=== PATIENT | male | born 1975 | race Caucasian/White ===

== ENCOUNTER 2016-09-21 08:32 | Emergency (ER) | payer OTHER ==
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
--- NOTE | 2016-09-21 09:55 | CR ---
Chest: 2 views of the chest were obtained. Comparison: No previous chest x-ray. Heart size and mediastinum are normal. Small nodule identified overlying the right upper rib. Lungs otherwise are clear. Slight degenerative spurring is seen within the spine. Impression: 1. Small right upper lobe nodule. Uncertain if this represents a parenchymal nodule or costochondral calcification. Apical lordotic view is suggested to further evaluate. 2. Nothing acute is otherwise seen on 2 view chest x-ray. Diagnostic code #9
--- NOTE | 2016-09-21 12:13 | CR ---
Chest: Apical lordotic view was obtained of the chest. Comparison: Previous chest x-ray performed earlier on the same day. Findings: No persisting nodule is seen. Nodule seen previously felt to represent costochondral calcification. Lungs are clear. Impression: 1. No persisting nodule. Nothing acute is seen. Diagnostic code #1
[2016-09-21 12:32] VITALS: BP 136/86
== END 2016-09-21 12:28 | disposition home or self-care (01) ==
LOC: JD.ED 08:32
DX: R07.89 Other chest pain (principal); F41.9 Anxiety disorder, unspecified
CPT/HCPCS: 36415; 71010; 71010-26; 71020; 71020-26; 80053; 84484; 85025; 93005; 99284; 99285-25

== ENCOUNTER 2019-02-21 06:33 | Emergency (ER) | payer OTHER ==
[2019-02-21 06:48] VITALS: BP 123/84
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
[2019-02-21] MEDS ORDERED: Sucralfate Suspension 1 GM/10 ML Cup PO ONE (07:10)
== END 2019-02-21 08:32 | disposition home or self-care (01) ==
LOC: JD.ED 06:33
DX: R10.13 Epigastric pain (principal); F41.9 Anxiety disorder, unspecified
CPT/HCPCS: 36415; 80053; 84484; 85007; 85027; 86140; 93005; 99284; A9270; 93010; 99283

== ENCOUNTER 2020-10-01 22:01 | Emergency (ER) | payer OTHER ==
[2020-10-01 22:11] VITALS: BP 145/93; PULSE 78
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
[2020-10-01] MEDS ORDERED: Ondansetron 4 MG Tab.DIS PO ONE (22:46)
--- NOTE | 2020-10-02 15:29 | CT ---
Head CT Technique: Multiple axial sections through the brain were obtained. Intravenous contrast was not utilized. Reconstructed coronal and sagittal images were obtained. Comparison: No prior intracranial imaging is available. Findings: Ventricles along with basal cisterns and sulci over the convexities appear within normal limits for the patient's age. No abnormal parenchymal densities are seen. No evidence of intracranial hemorrhage. No midline shift or mass-effect is appreciated. Bone window settings were reviewed. Visualized mastoid sinuses and paranasal sinuses show nothing acute. No acute calvarial abnormality is appreciated. Impression: 1. Nothing acute is appreciated on noncontrast head CT study. Note: Please consider MRI brain to further evaluate patient's symptoms. Diagnostic code #1 I agree with preliminary report from [facility] finalized on 10/01/20, 11:52 PM CDT, code #1
== END 2020-10-02 00:10 | disposition home or self-care (01) ==
LOC: JD.ED 22:01
DX: R56.9 Unspecified convulsions (principal); J30.9 Allergic rhinitis, unspecified; Z79.899 Other long term (current) drug therapy
CPT/HCPCS: 36415; 70450; 80053; 80306; 80307; 81001; 85025; 86140; 99285; A9270; 99284

== ENCOUNTER 2024-11-19 19:42 | Emergency (ER) | payer OTHER ==
[2024-11-19 21:18] VITALS: BP 121/85; PULSE 63
== END 2024-11-19 21:13 | disposition home or self-care (01) ==
LOC: JD.ED 19:42
DX: R19.7 Diarrhea, unspecified (principal); Z88.0 Allergy status to penicillin; Z88.8 Allergy status to other drugs, medicaments and biological substances; Z79.899 Other long term (current) drug therapy; Z86.16 Personal history of COVID-19
CPT/HCPCS: 99283

== ENCOUNTER 2024-11-29 02:00 | Emergency (ER) | payer OTHER ==
[2024-11-29] MEDS ORDERED: Sodium Chloride 0.9% 10 ML Syringe FLUSH PRN (02:22)
[2024-11-29 02:37] LABS: BASOPHILS ABSOLUTE AUTO 0.1 K/mm3 (0.0-0.2); BASOPHILS PERCENT AUTO 0.5 % (0.0-1.0); HEMATOCRIT 46.7 % (42.0-52.0); HEMOGLOBIN 16.6 gm/dl (14.0-18.0); IMMATURE GRAN ABSOLUTE AUTO 0.01 K/mm3 (0.00-0.05); IMMATURE GRAN PERCENT AUTO 0.1 % (0.0-0.4); LYMPHOCYTES ABSOLUTE AUTO 3.2 K/mm3 (1.0-4.8); LYMPHOCYTES PERCENT AUTO 30.5 % (24.0-44.0); MEAN CORPUSCULAR HEMOGLOBIN 32.2 pg (28.0-32.0); MEAN CORPUSCULAR HGB CONC 35.5 g/dl (32.0-36.0); MEAN CORPUSCULAR VOLUME 90.7 fl (83.0-99.0); MEAN PLATELET VOLUME 9.9 fl (9.4-12.4); MONOCYTES ABSOLUTE AUTO 0.6 K/mm3 (0.0-0.8); NEUTROPHILS ABSOLUTE AUTO 4.6 K/mm3 (1.8-7.7); NEUTROPHILS PERCENT AUTO 43.9 % (41.0-71.0); PLATELET COUNT,PLT 228 K/mm3 (150-400); RED BLOOD CELL COUNT 5.15 M/mm3 (4.52-5.90); WHITE BLOOD CELL COUNT,WBC 10.46 K/mm3 (3.9-11.3)
[2024-11-29] MEDS: Sodium Chloride 0.9% 1,000 ML IV ONE (02:45)
[2024-11-29 02:58] LABS: A/G RATIO 1.3 (1-2); ALBUMIN 4.3 g/dl (3.4-5.0); ANION GAP 12.8 (5-15); BILIRUBIN TOTAL 0.9 mg/dL (0.2-1.0); BUN/CREATININE RATIO 13.3 (14-18); CALCIUM 9.3 mg/dL (8.5-10.1); CREATININE 1.2 mg/dL (0.7-1.3); EST CRCL DRUG DOSING (CG) 85.63 mL/min; POTASSIUM,K 3.8 mEq/L (3.5-5.1); PROTEIN TOTAL,TP 7.7 g/dl (6.4-8.2)
[2024-11-29 04:20] VITALS: BP 126/86; PULSE 59
== END 2024-11-29 04:00 | disposition home or self-care (01) ==
LOC: JD.ED 02:00
DX: R19.7 Diarrhea, unspecified (principal); Z88.0 Allergy status to penicillin; Z88.8 Allergy status to other drugs, medicaments and biological substances
CPT/HCPCS: 36415; 80053; 83735; 85025; 87493; 96360; 99284; J7030; 99283